=== PATIENT | female | born 1935 | race Caucasian/White ===

== ENCOUNTER 2016-09-03 16:15 | Emergency (ER) | payer MEDICARE, BC ==
[2016-09-03 16:43] LABS: Urine Bilirubin Negative (NEGATIVE); Urine Ketone Negative (NEGATIVE); Urine Nitrite Negative (NEGATIVE); Urine Protein Negative (NEGATIVE); Urine Urobilinogen Normal (NORMAL)
[2016-09-03 16:53] LABS: Urine Appearance Slightly Cloudy; Urine Bacteria None Seen; Urine Blood 10 /ul (NEGATIVE); Urine Color Pale Yellow; Urine RBC TRACE /hpf (0-5); Urine WBC 0-5 /hpf (0-5)
[2016-09-03 17:21] LABS: Hematocrit 43.7 % (37.0-47.0); Hemoglobin 14.6 gm/dL (12.5-16.0); Mean Cell Volume 96.3 fl (78-100); Mean Corpuscular Hemoglobin 32.2 pg (27-31); Mean Corpuscular Hgb Conc 33.4 g/dl (32-36); Mean Platelet Volume 10.3 fl (6.0-9.5); Neutrophil # 6.2 K/mm3 (1.3-6.0); Neutrophil % 65.3 % (42-75.0); Platelet Count 342 K/mm3 (150-450); Red Blood Count 4.54 M/mm3 (4.2-5.4); Red Cell Distribution Width 13.2 % (11.5-14.0); White Blood Count 9.6 K/mm3 (4.0-10.5)
[2016-09-03] MEDS ORDERED: COD LIVER OIL/ZINC OXIDE 113 APPL TUBE TP ONE (17:35)
--- NOTE | 2016-09-03 17:35 | ERNOTE ---
Trauma/Assault HPI - Narrative Date of Service: 09/03/16 - General Stated Complaint: FALL - CONFUSED Time Seen by Provider: 09/03/16 16:46 Source: patient, family Exam Limitations: no limitations - Immun/Allergies/Home Medications Immunizations: IMMUNIZATION HX Immunizations Up to Date Yes History of Influenza Vaccine Yes Hx Pneumococcal Vaccination Yes Allergies/Adverse Reactions: Allergies quinine Allergy (Verified 09/03/16 16:25) Home Medications: HOME MEDICATIONS Acetaminophen [Tylenol] 650 mg PO Q4H PRN 07/18/15 [Last Taken Unknown] Aspirin 162 mg PO DAILY 07/18/15 [Last Taken Unknown] Calcium Citrate/Vitamin D3 [Calcium Citrate - Vit D Caplet] 2 each PO DAILY 05/23 [Last Taken Unknown] Citalopram Hydrobromide [Citalopram HBr] 10 mg PO DAILY 07/18/15 [Last Taken Unknown] Furosemide [Lasix] 160 mg PO DAILY 07/18/15 [Last Taken Unknown] Glimepiride [Amaryl] 2 mg PO BID 07/18/15 [Last Taken Unknown] Levothyroxine Sodium [Tirosint] 75 mcg PO DAILY 07/18/15 [Last Taken Unknown] Omeprazole [Prilosec] 40 mg PO DAILY 07/18/15 [Last Taken Unknown] Potassium Chloride [Klor-Con 10] 70 meq PO TID 07/18/15 [Last Taken Unknown] Simvastatin [Zocor] 40 mg PO HS 07/18/15 [Last Taken Unknown] buPROPion HCL [Wellbutrin SR, Zyban] 150 mg PO BID 07/18/15 [Last Taken Unknown] Multivitamin [Poly-Vitamin] 1 each PO DAILY 07/24/15 [Last Taken Unknown] Sennosides [Senokot] 3 tab PO HS 07/24/15 [Last Taken Unknown] Cephalexin Monohydrate [Keflex] 500 mg PO QID #40 cap 02/02/16 [Last Taken Unknown] - History of Present Illness Date (Duration): 09/03/16 Narrative: Pt present to ER with son with c/o fall due to dizziness. Pt states she fell at home on carpet without injuring herself. Pt states she is fine in the beginning of the day but later in the day she starts to get dizzy after standing up and falls. Pt states she doesn't think she hit her head or loss consciousness. Pt denies pain/discomfort. Pt son is worried about Pt living home alone. All children live in different states. No one is around to help her. Pt has meals on wheels that comes out everyday at noon to deliver meals. Pt has someone come out 2x per week to assist in bathing. Pt son states Pt sits at home in recliner all day and does not do anything else. Pt gets up and walks with walker. Pt son states the dizziness and falling is happening weekly now and is getting worried. Pt son states she can't take care of herself anymore. Son has an appointment with intermediate on Wednesday. Pt son further states his mother has been confused lately and seems to be getting worse towards the end of the day as well. She called him in the middle of the night not sure how to turn off the oven, felt the over and it wasn't warm, but needed him to come and turn it off. He has also received calls that the heat isn't working and is not able to help her due to living out of state. Location Occurred: Reports: home Pain Location: Reports: none Method of Injury: Reports: fall Severity: mild Loss of Consciousness: Reports: no loss of consciousness Associated Symptoms - Trauma: Reports: denies symptoms, dizziness, lightheadedness, trouble walking - walks with a walker, shortness of breath - occassional shortness of breath with dizziness before falling. Denies: headache , confusion, seizures, slurred speech, vision changes, neck pain, chest pain, nausea, vomiting Review of Systems - Review of Systems Constitutional: Present: weakness - walks with walker, decreased activity level - sits on chair most of the day. Absent: recent illness, fever, chills, diaphoresis EYE: Present: no symptoms reported. Absent: eye pain, blurred vision, double vision, vision changes ENT: Present: no symptoms reported, pulling on ears. Absent: ear pain, ear discharge, nose pain, nose congestion, nasal drainage, sore throat, throat swelling Respiratory: Present: no symptoms reported. Absent: shortness of breath, cough , orthopnea, wheezing, stridor Cardiology: Present: no symptoms reported. Absent: chest pain, palpitations, edema Gastrointestinal/Abdominal: Present: no symptoms reported. Absent: nausea, vomiting, diarrhea, constipation, abdominal pain, eating less, drinking less Genitourinary: Present: no symptoms reported, frequency, pain - occasional pain during urination, decreased urinary output Musculoskeletal: Present: no symptoms reported Skin: Present: no symptoms reported. Absent: rash, lesions, change in color Neurological: Present: dizziness/light-headedness, weakness, other - confusion . Absent: anxiety, depressed, headache, seizure, numbness, tingling Endocrine: Absent: excessive sweating, flushing, intolerance to heat, intolerance to cold, increased hunger, increased thirst, increased urine Hematologic/Lymphatic: Present: no symptoms reported, easy bruising. Absent: swollen glands Psych: Present: no symptoms reported. Absent: anxiety, depressed All Other Systems: All systems neg except as marked - Patient's Past Medical History Patient History - Medical: Diabetes Type 2, Depression, GERD, Hypothyroidism Patient History - Cardiac/Respiratory: Atrial Fibrillation, CVA/Stroke, Hypertension, Hyperlipidemia Patient History - Cancer: No Hx of Cancer Patient History - Surgical Procedures: Cataracts, T & A Patient History - Other: None - Family History Mother Family History - Medical: , History Unknown Father Family History - Medical: , History Unknown Family History - Cardiac/Respiratory: CVA/Stroke - Social History Living Situations: alone Smoking Status: Former smoker Alcohol Use: none Drug Use: none - Immunizations Immunizations Up to Date: Yes Hx Pneumococcal Vaccination: Yes History of Influenza Vaccine: Yes Physical Exam - Physical Exam General Appearance: Present: wd/wn, alert, no apparent distress, obese. Absent : anxious, active Eye Exam: Normal inspection: bilateral, PERRL: bilateral, EOMI: bilateral Ears, Nose, Throat: Present: normal ENT inspection, hearing grossly normal, normal pharynx. Absent: cerumen impaction, nasal congestion, sinus pain/ drainage Neck: Present: normal inspection, nontender, supple, full range of motion. Absent: limited range of motion Respiratory: Present: no respiratory distress, normal breath sounds, no accessory muscle use, chest nontender, lungs clear. Absent: accessory muscle use, decreased breath sounds, crackles, rales, rhonchi, stridor, wheezing, pleural rub Cardiovascular/Chest: Present: no murmur, normal peripheral pulses, other - irregular heart rate. Absent: tachycardia, bradycardia Gastrointestinal/Abdominal: Present: normal bowel sounds, nontender, nondistended, soft, no organomegaly. Absent: abnormal bowel sounds, distended, guarding Back Exam: Present: normal inspection, normal range of motion, no vertebral tenderness, CVA tenderness (R), CVA tenderness (L). Absent: no CVA tenderness, decreased range of motion, muscle spasm Extremity Exam: Present: normal inspection, non-tender, no edema, normal range of motion. Absent: decreased range of motion Neurological Exam: Present: alert, oriented, normal mood/affect, no motor/ sensory deficits, hvac lead II-XII nml as tested, normal cerebellar test. Absent: facial droop, motor weakness, disoriented to person, disoriented to time, disoriented to place, disoriented to situation Skin Exam: Present: warm/dry, other - excoriation to buttock . Absent: skin rash Lymphatic Exam: Present: no adenopathy ED Progress - Date and Time Seen: Date and Time: 09/03/16 18:[address] Saravia and Dr Moon and we feel that pt. is not appropriate to be kept at out facility if she desires aggressive treatment. Discussed with Pt. and family and they would like to be transferred to [facility] for further evaluation and treatment of Subdural hematoma and would like for pt. to be full code. Discussed with Dr Burrows at [facility] and he accepts transfer of pt. and feels that Neurosurgery could try a few interventions to stop[ the bleeding if pt. desires. - Results and Orders Patient's Lab Results:: I have reviewed the patient's lab results. - Vital Signs Patient's Vital Signs:: I have reviewed the patient's vital signs. Vital Signs: Vital Signs 09/03/16 16:22 Temperature 36.4 C L Pulse Rate 101 H Respiratory 14 Rate Blood Pressure 124/67 O2 Sat by Pulse 97 Oximetry - CT/Ultrasound CT/Ultrasound Narrative: CT Head: LARGE RIGHT SUBDURAL HEMATOMA WITH CHARACTERISTICS SUGGESTING ACUTE ON SUBACUTE HEMORRHAGE. MIDLINE SHIFT DISCUSSED. REMOTE LEFT-SIDED INFARCTS WITH UNDERLYING ATROPHY AND WHITE MATTER MICROVASCULAR ISCHEMIC DISEASE. - Progress/Reassessment Chief Complaint: Fall Departure Clinical Impression: Subdural hematoma, acute UTI (urinary tract infection) Qualifiers: Urinary tract infection type: site unspecified Hematuria presence: with hematuria Qualified Code(s): N39.0 - Urinary tract infection, site not specified ; R31.9 - Hematuria, unspecified - Departure Disposition: [facility] Condition: Serious
[2016-09-03 17:39] LABS: ALT 40 U/L (19-67); AST 33 U/L (0-48); Albumin * 3.2 gm/dl (3.4-5.0); Alkaline Phosphatase * 86 U/L (50-170); Anion Gap 15.7 mmol/L (6.8-13.8); BUN/Creatinine Ratio 8.7 (9.0-21.6); Bilirubin, Total 0.4 mg/dL (0.0-1.1); Blood Urea Nitrogen 10 mg/dL (3-23); Ca. Corrected For Albumin 9.5 mg/dL (8.4-10.2); Calcium * 9.2 mg/dL (7.9-10.9); Carbon Dioxide 26.3 mmol/L (24-32.6); Chloride 102 mmol/L (97-106); Glucose * 86 mg/dL (70-110); Sodium 140 mmol/L (132-142); Total Protein 7.9 gm/dL (6.2-8.2); Troponin I Less than 0.017 ng/ml (0.00-0.10)
[2016-09-03 18:16] LABS: Prothrombin Time (Patient) 11.8 Seconds (9.4-11.4)
[2016-09-03] MEDS ORDERED: NORMAL SALINE 1,000 ML IV ONE (18:18)
[2016-09-03 18:20] LABS: INR 1.13 INR (0.90-1.10)
[2016-09-03 19:37] VITALS: BP 123/69
== END 2016-09-03 19:15 | disposition short-term general hospital (02) ==
LOC: ER 16:15
DX: S06.5X0A Traumatic subdural hemorrhage without loss of consciousness, initial encounter (principal); N39.0 Urinary tract infection, site not specified; Z87.891 Personal history of nicotine dependence; W19.XXXA Unspecified fall, initial encounter; Y92.009 Unspecified place in unspecified non-institutional (private) residence as the place of occurrence of the external cause

== ENCOUNTER 2017-09-13 13:56 | Emergency (ER) | payer MEDICARE, BC ==
[2017-09-13 14:38] LABS: Hematocrit 40.7 % (37.0-47.0); Hemoglobin 13.7 gm/dL (12.5-16.0); Mean Cell Volume 91.5 fl (78-100); Mean Corpuscular Hemoglobin 30.8 pg (27-31); Mean Corpuscular Hgb Conc 33.7 g/dl (32-36); Mean Platelet Volume 12.6 fl (6.0-9.5); Neutrophil # 5.2 K/mm3 (1.3-6.0); Neutrophil % 61.4 % (42-75.0); Platelet Count 201 K/mm3 (150-450); Red Blood Count 4.45 M/mm3 (4.2-5.4); Red Cell Distribution Width 14.2 % (11.5-14.0); White Blood Count 8.5 K/mm3 (4.0-10.5)
[2017-09-13 14:42] LABS: Prothrombin Time (Patient) 14.7 Seconds (9.0-11.0)
[2017-09-13 14:43] LABS: INR 1.46 INR (0.90-1.10)
[2017-09-13 14:45] LABS: Anion Gap 10.6 mmol/L (6.8-13.8); BUN/Creatinine Ratio 7.2 (9.0-21.6); Bilirubin Direct 6.5 mg/dL (0.0-0.3); Bilirubin, Total 7.6 mg/dL (0.0-1.1); Ca. Corrected For Albumin 9.5 mg/dL (8.4-10.2); Carbon Dioxide 30.8 mmol/L (24-32.6); Potassium 3.4 mmol/L (3.4-4.6); Total Protein 7.6 gm/dL (6.2-8.2)
[2017-09-13 15:13] LABS: Urine Bilirubin 1 mg/dl (NEGATIVE); Urine Blood Negative /ul (NEGATIVE); Urine Ketone Negative (NEGATIVE); Urine Nitrite Negative (NEGATIVE); Urine Protein Negative (NEGATIVE); Urine Specific Gravity 1.015 SP.GR. (1.005-1.010); Urine Urobilinogen Normal (NORMAL)
[2017-09-13 15:33] LABS: Urine Appearance Clear; Urine Bacteria None Seen; Urine Color Yellow; Urine RBC None Seen /hpf (0-5); Urine WBC None Seen /hpf (0-5)
[2017-09-13] MEDS ORDERED: PIPERACILLIN SODIUM/TAZOBACTAM 3.375 GM in DEXTROSE 5 % IN WATER 100 ML IV ONE ×2 (16:43)
--- NOTE | 2017-09-13 16:57 | ERNOTE ---
Medical Problem HPI - Narrative Date of Service: 09/13/17 - General Chief Complaint: General Assessment Time Seen by Provider: 09/13/17 14:02 Source: patient Exam Limitations: dementia - Immun/Allergies/Home Medications Immunizations: IMMUNIZATION HX Immunizations Up to Date Yes History of Influenza Vaccine Yes Hx Pneumococcal Vaccination Yes Allergies/Adverse Reactions: Allergies quinine Allergy (Verified 09/03/16 16:25) Home Medications: HOME MEDICATIONS Acetaminophen [Tylenol] 650 mg PO Q4H PRN 07/18/15 [Last Taken Unknown] Aspirin 162 mg PO DAILY 07/18/15 [Last Taken Unknown] Calcium Citrate/Vitamin D3 [Calcium Citrate - Vit D Caplet] 2 each PO DAILY 05/23 [Last Taken Unknown] Citalopram Hydrobromide [Citalopram HBr] 10 mg PO DAILY 07/18/15 [Last Taken Unknown] Furosemide [Lasix] 160 mg PO DAILY 07/18/15 [Last Taken Unknown] Glimepiride [Amaryl] 2 mg PO BID 07/18/15 [Last Taken Unknown] Levothyroxine Sodium [Tirosint] 75 mcg PO DAILY 07/18/15 [Last Taken Unknown] Omeprazole [Prilosec] 40 mg PO DAILY 07/18/15 [Last Taken Unknown] Potassium Chloride [Klor-Con 10] 70 meq PO TID 07/18/15 [Last Taken Unknown] Simvastatin [Zocor] 40 mg PO HS 07/18/15 [Last Taken Unknown] buPROPion HCL [Wellbutrin SR, Zyban] 150 mg PO BID 07/18/15 [Last Taken Unknown] Multivitamin [Poly-Vitamin] 1 each PO DAILY 07/24/15 [Last Taken Unknown] Sennosides [Senokot] 3 tab PO HS 07/24/15 [Last Taken Unknown] Cephalexin Monohydrate [Keflex] 500 mg PO QID #40 cap 02/02/16 [Last Taken Unknown] - History of Present History Narrative: Patient presents to the ED via EMS for jaundice. She has been on Tamiflu, apparently had 3 doses. No vomiting or fever. She denies pain. Apparently has been with the last 24 hours that she has became jaundiced. No diarrhea. She denies CP or SOB. Nothing seems to make this better or worse. Has not seen anyone else for this. Timing: constant, getting worse Modifying Factors - (Improves): Present: other - nothing Modifying Factors - (Worsens): Present: other - nothign Review of Systems - Narrative Narrative: she denies all complaints but I am not sure how reliable this is. - Review of Systems Constitutional: Absent: fever Respiratory: Absent: shortness of breath Cardiology: Absent: chest pain Gastrointestinal/Abdominal: Absent: vomiting, abdominal pain All Other Systems: All systems neg except as marked - Patient's Past Medical History Patient History - Medical: Diabetes Type 2, Depression, GERD, Hypothyroidism Patient History - Cardiac/Respiratory: Atrial Fibrillation, CVA/Stroke, Hypertension, Hyperlipidemia Patient History - Cancer: No Hx of Cancer Patient History - Surgical Procedures: Cataracts, T & A Patient History - Other: None LMP (females 10-50): Menopausal - Family History Mother Family History - Medical: , History Unknown Father Family History - Medical: , History Unknown Family History - Cardiac/Respiratory: CVA/Stroke - Social History Living Situations: fdc Abuse History: No History of abuse Psych History: No pertinent hx Smoking Status: Smoker, status unknown Have you smoked in the past 12 months: No Do you dip or chew tobacco: No Alcohol Use: sober Drug Use: none - Immunizations Immunizations Up to Date: Yes Hx Pneumococcal Vaccination: Yes History of Influenza Vaccine: Yes Physical Exam - Physical Exam General Appearance: Present: alert, no apparent distress Head Exam: Present: normal inspection, no evidence of injury Eye Exam: Normal inspection: bilateral, PERRL: bilateral Ears, Nose, Throat: Present: normal ENT inspection Neck: Present: normal inspection Respiratory: Present: no respiratory distress, normal breath sounds, no accessory muscle use, lungs clear Cardiovascular/Chest: Present: regular rate, rhythm, normal peripheral pulses Gastrointestinal/Abdominal: Present: normal bowel sounds, nontender, nondistended, soft, other - no clear tendenress but she does seem somewhat uncomfortable with deep palpation RUQ Back Exam: Absent: CVA tenderness (R), CVA tenderness (L) Extremity Exam: Present: normal inspection Neurological Exam: Present: alert, no motor/sensory deficits Skin Exam: Present: normal color, warm/dry, jaundice ED Progress - Results and Orders Patient's Lab Results:: I have reviewed the patient's lab results. - Vital Signs Patient's Vital Signs:: I have reviewed the patient's vital signs. Vital Signs: Vital Signs 09/13/17 09/13/17 09/13/17 13:59 14:13 14:55 Temperature 36.0 C L 36.0 C L Pulse Rate 65 65 61 Respiratory 18 18 15 Rate Blood Pressure 121/48 121/48 114/49 O2 Sat by Pulse 99 99 97 Oximetry 09/13/17 15:56 Temperature Pulse Rate 62 Respiratory 18 Rate Blood Pressure 126/71 O2 Sat by Pulse 98 Oximetry - CT/Ultrasound CT/Ultrasound Narrative: I reviewed official report for US per radiology\ - Progress/Reassessment Chief Complaint: General Assessment Progress Note-Subjective: 09/13/17 16:56 D/W Dr Combs the n with [facility]. [facility] accepts patient in transfer. Medically maximized for transfer. Departure Clinical Impression: Jaundice, Pancreatitis - Departure Disposition: [facility] Condition: Fair
[2017-09-13 18:09] VITALS: BP 133/56
== END 2017-09-13 18:15 | disposition short-term general hospital (02) ==
LOC: ER 13:56
DX: K85.90 Acute pancreatitis without necrosis or infection, unspecified (principal); R17 Unspecified jaundice